=== PATIENT | male | born 1945 | race Caucasian/White ===

== ENCOUNTER 2023-10-09 08:42 | Emergency (ER) | payer MEDICARE ==
[~2023-10-09] VITALS: Ht 175.3 cm; Wt 88.0 kg
[~2023-10-09 08:42] MED LIST: B121000 MCG PO; CIALIS10 M1 PO; LIPITOR10 M1 PO
[2023-10-09 09:02] VITALS: BP 149/82
[2023-10-09 09:15] VITALS: BP 144/87
[2023-10-09] MEDS ORDERED: WEGOVY0.25 MG (09:16)
[2023-10-09 10:09] VITALS: BP 144/87
[2023-10-09] MEDS ORDERED: PROCTOZONE-HC2.5 % TOP (11:03)
== END 2023-10-09 10:23 | disposition designated cancer center or children's hospital (05) ==
LOC: ED 08:42
DX: K59.00 Constipation, unspecified (principal)